=== PATIENT | female | born 1960 | race Two or more races ===

== ENCOUNTER 2019-11-20 12:15 | Inpatient (IN) | payer OTHER ==
[~2019-11-20] VITALS: Ht 157.5 cm; Wt 63.5 kg
[2019-11-20] MEDS ORDERED: SYNTHROID75 MCG PO (15:27)
[2019-11-20] MEDS ORDERED: AVAPRO300 MG PO (15:27)
[2019-11-20] MEDS ORDERED: VITAMIN D35000 UNI2 PO (15:28)
[2019-11-27] MEDS ORDERED: VITAMIN D350 MC2 PO (10:16)
== END 2019-11-29 15:28 | disposition home or self-care (01) | DRG 331 ==
LOC: O/R 11-26 06:00 → SURG 11-26 06:00 → SURH 11-26 07:00 → SURG 11-26 14:29
PROVIDERS: ADMIT Colon & Rectal Surgery
PROC: 0DBN4ZZ Excision of Sigmoid Colon, Percutaneous Endoscopic Approach (ICD-10-PCS; 2019-11-26)
PROC: 0DTP4ZZ Resection of Rectum, Percutaneous Endoscopic Approach (ICD-10-PCS; principal; 2019-11-26 07:00)
DX: K57.30 Diverticulosis of large intestine without perforation or abscess without bleeding (principal); E03.9 Hypothyroidism, unspecified; J45.20 Mild intermittent asthma, uncomplicated; I13.10 Hypertensive heart and chronic kidney disease without heart failure, with stage 1 through stage 4 chronic kidney disease, or unspecified chronic kidney disease; N18.2 Chronic kidney disease, stage 2 (mild)

== ENCOUNTER 2020-10-02 07:02 | Day surgery (SDC) | payer OTHER ==
[~2020-10-02 07:02] MED LIST: AVAPRO300 MG PO; SYNTHROID75 MCG PO; VITAMIN D350 MC2 PO; VITAMIN D35000 UNI2 PO
== END 2020-10-02 13:40 | disposition home or self-care (01) ==
LOC: AMB-ENDOS 07:02
PROVIDERS: ATTEND Colon & Rectal Surgery
DX: K57.32 Diverticulitis of large intestine without perforation or abscess without bleeding (principal); K64.0 First degree hemorrhoids; Z20.822 Contact with and (suspected) exposure to COVID-19